=== PATIENT | male | born 1990 | race Caucasian/White ===

== ENCOUNTER 2018-01-23 14:22 | Emergency (ER) | payer OTHER ==
[~2018-01-23 14:22] MED LIST: IBUP800T23 PO; ONDA4 PO
[2018-01-23 14:30] VITALS: BP 130/89; PULSE 83; RESP 16; TEMP 98.3; O2SAT 100
--- NOTE | 2018-01-23 15:01 | RADRPT ---
EXAM DATE/TIME: 01/23/2018 14:42 [place] COMPARISON: No previous studies available for comparison. INDICATIONS : Left ankle pain on medial side after twisting ankle while working. MEDICAL HISTORY : None. SURGICAL HISTORY : None. ENCOUNTER: Initial ACUITY: 1 day PAIN SCORE: 6/10 LOCATION: Left ankle FINDINGS: Three view exam was performed of the left ankle. The bony structures are in normal alignment. No ev idence of fracture, dislocation, or periosteal reaction. The ankle mortise is intact. There is mild soft tissue swelling about the medial aspect of the ankle. No radiopaque foreign bodies are seen. Bony mineralization is normal. CONCLUSION: 1. Medial soft tissue swelling, mild. 2. No evidence of fracture or dislocation. Kaz Poole MD on January 23, 2018 at 14:58 Board Certified Radiologist. This report was verified electronically.
--- NOTE | 2018-01-23 16:41 | PD ---
HPI Chief Complaint: Injury Time Seen by Provider: 16:33 Travel History International Travel<30 days: No Contact w/Intl Traveler<30days: No Traveled to known affect area: No History of Present Illness HPI 27-year-old male, [employer] employee, presents to the emergency department with complaint of left ankle pain and swelling after twisting it while fast walking/ jogging to grab some instruments for a emergent surgery today. Denies paresthesias, loss of sensation to the affected extremity. Has been ambulatory on the affected extremity. Reports pain to the lateral and medial aspects. Rates pain 6/10. Has not taken any medication or tried any treatments to alleviate his symptoms. Worse with ambulation, movement, palpation. Better at rest. No primary care provider. No known allergies. Denies significant past medical history. Has no other medical complaints. No other modifying factors or associated signs and symptoms. PFSH Past Medical History Diminished Hearing: No Musculoskeletal: Yes (FX FOOT/ANKLE UNSURE WHICH SIDE) Immunizations Current: Yes Past Surgical History Tonsillectomy: Yes (AND ADENOIDS) Social History Alcohol Use: No Tobacco Use: No Substance Use: No Allergies-Medications (Allergen,Severity, Reaction): Coded Allergies: No Known Allergies (Unverified , 01/23/18) Reported Meds & Prescriptions Reported Meds & Active Scripts Active Ibuprofen 800 Mg Tab 800 Mg PO Q6HR PRN Review of Systems Except as stated in HPI: all other systems reviewed are Neg Physical Exam Narrative GENERAL: Well-nourished, well-developed male patient, in no acute distress SKIN: Warm and dry. HEAD: Atraumatic. Normocephalic. EYES: Pupils equal and round. No scleral icterus. No injection or drainage. ENT: Mucosa pink and moist. Airway patent. NECK: Trachea midline. CARDIOVASCULAR: Regular rate. RESPIRATORY: No accessory muscle use. GASTROINTESTINAL: Rounded. MUSCULOSKELETAL: Left ankle ankle with point tenderness to the lateral and medial malleolus zone with palpation; tenderness on palpation to the medial aspect of the lower ankle/foot area; mild edema; without erythema, ecchymosis; no obvious deformity. Left lower extremity is supple and nontense with 2+ pedal pulse and sensory intact. No obvious deformities. No clubbing. No cyanosis. NEUROLOGICAL: Awake and alert. Oriented 3. No obvious cranial nerve deficits. Motor grossly within normal limits. Normal speech. PSYCHIATRIC: Appropriate mood and affect; insight and judgment normal. Data Data Last Documented VS Vital Signs Date Time Temp Pulse Resp B/P (MAP) Pulse Ox O2 Delivery O2 Flow Rate FiO2 01/23/18 14:30 98.3 83 16 130/89 (103) 100 Orders Orders Ankle, Complete ([id number]) (01/23/18 ) Splint Or Brace Apply/Monitor (01/23/18 16:41) Crutches (01/23/18 16:41) Ed Discharge Order (01/23/18 16:52) Ibuprofen (Motrin) (01/23/18 17:00) MDM Medical Decision Making Medical Screen Exam Complete: Yes Emergency Medical Condition: Yes Medical Record Reviewed: Yes Differential Diagnosis Ankle sprain, ankle fracture, ankle injury Narrative Course 27-year-old male with left ankle injury after injuring it here at [place] while at work today. Ibuprofen administered in the ER. Left ankle x-ray ordered in triage and concludes: Ankle X-Ray 01/23/18 0000 Signed Impressions: Service Date/Time: January 14:42 - CONCLUSION: 1. Medial soft tissue swelling, mild. 2. No evidence of fracture or dislocation. Kaz Poole MD Patient provided a copy of the x-ray report. [place] bandage, ankle stirrup splint , crutches provided for support. Instructed patient to follow-up with orthopedic surgeon or glass vial filler if symptoms persist greater than 7-10 days. Ibuprofen prescribed for home. Instructed patient to follow up with primary care provider. Patient verbalizes understanding and agreement with treatment plan. Patient is medically cleared and stable for discharge. Discussed reasons to return to the emergency department. Patient agrees with treatment plan. The patients vital signs are stable and the patient is stable for outpatient follow-up and treatment. Patient discharged home, stable and in no acute distress. Diagnosis Primary Impression: Left ankle injury Qualified Codes: S99.912A - Unspecified injury of left ankle, initial encounter Referrals: [facility] [address] Orthopaedic Surgeon Primary Care Physician Patient Instructions: Ankle Sprain (ED), Ankle Stirrup Splint (ED), Crutch Instructions (ED), General Instructions Additional Instructions: Tylenol or ibuprofen as directed and as needed for pain and inflammation Rest, ice, compress, and elevate extremity to decrease pain and inflammation Ankle Brace for support Crutches for support Avoid aggravating activity; increase activity as tolerated Follow-up with primary care provider Follow-up with orthopedic surgeon or glass vial filler Return to the emergency department immediately with worsening of symptoms Med/Other Pt SpecificInfo: Prescription(s) given Scripts Ibuprofen (Ibuprofen) 800 Mg Tab 800 MG PO Q6HR Y for PAIN, #30 TAB 0 Refills Prov: Ghislaine Alejandre 01/23/18 Disposition: 01 DISCHARGE HOME Condition: Stable Ghislaine Alejandre Jan 23, 2018 16:41
[2018-01-23] MEDS ORDERED: IBUP1TAB7 PO (16:53)
[2018-01-23] MEDS ORDERED: IBUPROFEN 800 MG TAB PO ONE (17:00)
== END 2018-01-23 17:16 | disposition home or self-care (01) ==
LOC: NEPK 14:22
DX: S99.912A Unspecified injury of left ankle, initial encounter (principal); X50.1XXA Overexertion from prolonged static or awkward postures, initial encounter; Y93.F9 Activity, other caregiving; Y92.239 Unspecified place in hospital as the place of occurrence of the external cause; Y99.0 Civilian activity done for income or pay
CPT/HCPCS: 73610; 99283; E0113; L1906